=== PATIENT | female | born 1965 | race Caucasian/White ===

== ENCOUNTER 2017-11-20 10:30 | Inpatient (IN) | payer BC ==
[~2017-11-20] VITALS: Ht 160 cm; Wt 79.8 kg
--- NOTE | ~2017-11-20 | EKG ---
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
--- NOTE | ~2017-11-20 | PATH ---
[facility] [address] [place] [address] PATHOLOGY RPT PROCEDURE Name: MANISH MEYERS Room #: 227-P [facility] IN M.R.#: [id number] Admission: 11/20/17 Date of : 69 Discharge: 11/23/17 Report #: [id number] Path Case #: [id number] [facility] Accession Number: [id number] . 01 Material submitted: . GALLBLADDER . 01 Clinical history: . Symptomatic cholelithiasis . 02 Diagnosis: Gallbladder, cholecystectomy: - Moderate chronic cholecystitis. - Cholelithiasis. . (IUV:mml; 11/24/17) [facility]/11/24/2017 . 02 Electronically signed: . Masha Chris MD, Pathologist NPI- [id number] . 01 Gross description: . The specimen is received in formalin, labeled "Meyers, Manish, gallbladder" and consists of a previously opened pink-valencia and dusky gallbladder measuring 8.0 x 4.3 x 1.0 cm. Adhered to the mucosa is tenacious green bile with multiple yellow-green and multifaceted calculi measuring up to 1.0 cm. The mucosa is pink-red to roger and mildly trabeculated. Sectioning reveals an edematous wall measuring up to 0.6 cm and no masses or lesions are identified. Supply Chain Program Manager sections are submitted in A1-A3. (SDY; 11/22/2017) SYU/SYU . 02 Pathologist provided ICD-10: K80.10 . 02 CPT . 067318 Performed at: [address], [place], [place] [id number] MD Sohail Kelley MD Phone: [phone] Performed at: [address] [id number] MD Masha Chris MD Phone: [phone]
--- NOTE | ~2017-11-20 | EKG ---
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
--- NOTE | ~2017-11-20 | 2DMMODE ---
[facility] [address] [place] [address] 2 D/M-MODE ECHOCARDIOGRAM Name: MANISH MEYERS Room #: 209-P ADM IN M.R.#: [id number] Admission: 11/20/17 Attend Phys: Manjit Peres Discharge: Date of : 69 Date of Service: 11/21/17 1256 Report #: [id number] THIS REPORT FOR: //name// APPROVED REPORT Study performed: 11/21/2017 10:00:07 EXAM: Comprehensive 2D, Doppler, and color-flow Echocardiogram Patient Location: Echo lab Room #: 209 Status: routine BSA: 1.83 HR: 55 bpm BP: 133/69 mmHg Rhythm: NSR Other Information Study Quality: Adequate Indications Elevated troponin. 2D Dimensions RVDd: 33.38 mm LVEF(%): 60.85 (>50%) IVSd: 10.90 (7-11mm) LVOT Diam: 19.68 (18-24mm) LVDd: 47.97 mm PWd: 8.14 (7-11mm) Ascending Ao: 27.65 (22-36mm) LVDs: 32.34 (25-40mm) Aortic Root: 31.18 mm IVC: 20.00 mm Daugherty's LVEF: 60.85 % Volumes Left Atrial Volume (Systole) Single Plane 4CH: 44.74 mL Single Plane 2CH: 59.19 mL LA ESV Index: 32.00 mL/m2 Aortic Valve AoV Peak Timothy.: 1.16 m/s AO Peak Gr.: 5.39 mmHg LVOT Max P.75 mmHg LVOT Max V: 0.97 m/s PRETTY Vmax: 2.54 cm2 Mitral Valve E/A Ratio: 1.9 MV Decel. Time: 128.83 ms [facility] [place] [address] 2 D/M-MODE ECHOCARDIOGRAM Name: MANISH MEYERS Room #: 209-P [facility] IN M.R.#: [id number] Admission: 11/20/17 Attend Phys: Manjit Peres Discharge: Date of : 69 Date of Service: 11/21/17 1256 Report #: [id number] MV E Max Timothy.: 0.90 m/s MV A Timothy.: 0.47 m/s MV PHT: 37.36 ms IVRT: 87.66 ms Pulmonary Valve PV Peak Timothy.: 0.71 m/s PV Peak Gr.: 2.02 mmHg Pulmonary Vein P Vein S: 0.70 m/s P Vein A: 0.26 m/s P Vein D: 0.48 m/s P Vein A Dur.: 147.6 msec P Vein S/D Ratio: 1.46 Tricuspid Valve TR Peak Timothy.: 2.05 m/s RAP Estimate: 5.00 mmHg TR Peak Gr.: 16.81 mmHg PA Pressure: 22.00 mmHg Left Ventricle The left ventricle is normal size. There is normal LV segmental wall motion. There is normal left ventricular wall thickness. The left ventricular systolic function is normal. LVEF is 55%. The left ventricular diastolic function is normal. Right Ventricle The right ventricle is normal size. The right ventricular systolic function is normal. Atria The left atrium size is normal. The right atrium size is normal. Aortic Valve The aortic valve is normal in structure. Mild aortic regurgitation. There is no aortic valvular stenosis. Mitral Valve The mitral valve is normal in structure. Mild mitral regurgitation. No evidence of mitral valve stenosis. Tricuspid Valve The tricuspid valve is normal in structure. Trace to mild tricuspid regurgitation. Estimated PAP is 20-25mmHg. Pulmonic Valve The pulmonary valve is normal in structure. There is no pulmonic [facility] [address] [place] [address] 2 D/M-MODE ECHOCARDIOGRAM Name: MANISH MEYERS Room #: 209-P ADM IN M.R.#: [id number] Admission: 11/20/17 Attend Phys: Manjit Peres Discharge: Date of : 69 Date of Service: 11/21/17 1256 Report #: [id number] valvular regurgitation. Great Vessels The aortic root is normal in size. IVC is normal in size and collapses >50% with inspiration. Pericardium There is no pericardial effusion. <Conclusion> The left ventricle is normal size. LVEF is 55%. The aortic valve is normal in structure. Mild aortic regurgitation. The mitral valve is normal in structure. Mild mitral regurgitation. The tricuspid valve is normal in structure. Trace to mild tricuspid regurgitation. Estimated PAP is 20-25mmHg. The pulmonary valve is normal in structure. There is no pericardial effusion. <ELECTRONICALLY SIGNED> By: Ronnie Del Valle MD 11/21/17 1256 1256 1256 Ronnie Del Valle MD /INF
--- NOTE | ~2017-11-20 | O ---
[facility] [place] [address] OPERATIVE REPORT Name: MANISH MEYERS Room #: 227-P [facility] IN M.R.#: [id number] Admission: 11/20/17 Attend Phys: Manjit Burt Discharge: 11/23/17 Date of : 69 Report #: [id number] THIS REPORT FOR: //name// CC: Manjit Levi DATE OF SERVICE: 11/22/2017 SURGEON: Frantz May MD CARTOON DESIGNER: None. PREOPERATIVE DIAGNOSES: 1. Symptomatic cholelithiasis. 2. Noncardiac chest pain with elevated troponin I levels. POSTOPERATIVE DIAGNOSES: 1. Acute cholecystitis. 2. Noncardiac chest pain with elevated troponin I levels. PROCEDURE: Laparoscopic cholecystectomy with intraoperative cholangiogram. ANESTHESIA: General endotracheal anesthesia and local anesthetic. ESTIMATED BLOOD LOSS: 5 mL. SPECIMEN: Gallbladder. COMPLICATIONS: None appreciated. INDICATIONS FOR PROCEDURE: This is a 52-year-old female patient who was seen in the [facility] emergency room with upper abdominal pain located subcostally bilaterally. There was no temporal relationship with food. She had no relief of her symptoms with the passage of 3 bowel movements. With worsening of her pain, she was seen in the [facility] emergency room where CT of the abdomen and pelvis showed a thickened gallbladder wall, followed by an abdominal ultrasound showing cholelithiasis and gallbladder wall thickening. The patient denies nausea, vomiting, fever, or chills. Her troponin I was elevated at 0.33 initially, increased to 0.77, which prompted a nuclear stress test. This was negative. Cholecystectomy is indicated for noncardiac chest pain. OPERATIVE FINDINGS: Upon entrance into the abdominal cavity, the gallbladder was seen to be edematous with a moderate amount of fluid present within the pericholecystic tissue. The critical view consisting of cystic artery, cystic duct and lower edge of the gallbladder forming a window through which the liver was visible was seen prior to clipping the cystic duct for cholangiogram. [facility] [address] [place] [address] OPERATIVE REPORT Name: MANISH MEYERS Room #: 227-[facility] IN M.R.#: [id number] Admission: 11/20/17 Attend Phys: Manjit Burt Discharge: 11/23/17 Date of : 69 Report #: [id number] cholangiogram was normal with free flow of contrast into the duodenal sweep and no filling defects within the biliary tree. After removal of the gallbladder, 3 clips remained on the cystic duct stump. No other significant intra-abdominal pathology was seen. Upon opening the gallbladder on the back table, the gallbladder wall was acutely inflamed and thickened with multiple pea-sized mixed/nonpigmented gallstones within the gallbladder. At the conclusion of the operation, the sponge, needle, and instrument counts were correct. DESCRIPTION OF PROCEDURE IN DETAIL: After the benefits and risks of the procedure were explained to the patient which include but are not limited to risks of bleeding, infection, injury to the biliary tree, injury to adjacent organs, risk of DVT, pulmonary embolus, postoperative pain and postoperative expectations informed consent was obtained. The patient was identified in the preoperative holding area. The patient was then given IV antibiotics as documented in the chart to comply with the SCIP protocol. The patient was taken to the operating room and was placed in the supine position. The patient was given IV sedation and was intubated without incident. A time-out was performed to correctly identify the patient and procedure. SCDs were placed on the patient's bilateral lower extremities. The patient's abdomen was then prepped and draped in the standard sterile fashion with ChloraPrep. Local anesthetic was infiltrated into the skin and subcutaneous tissue. A periumbilical incision was made with a #15 blade scalpel. The 11-mm Visiport was then placed intraperitoneally with the 10-mm 0-degree angled laparoscope. After confirmation of placement within the peritoneal cavity, the scope was changed to a 10-mm 30 degree angled laparoscope and pneumoperitoneum was achieved with insufflation of carbon dioxide. The patient was placed in the reverse Trendelenburg position, rotated to the patient's left. A subxiphoid 5 mm and right subcostal 5 mm ports times 2 were placed under direct visualization after local anesthetic was infiltrated into the skin and subcutaneous tissue and appropriately sized incisions were made. Operative findings are as noted above. The dome of the gallbladder was retracted in a cephalad direction. The gallbladder peritoneum was scored medially and laterally after takedown of the adhesions to the gallbladder. Dissection was carried out around the cystic artery and cystic duct to identify each structure as entering directly into the gallbladder. The critical view as described above was seen. A Hemoclip was then placed on the cystic duct at its junction with the gallbladder. A ductotomy was made and the cholangiocatheter was passed into the cystic duct. A clip was placed, contrast was then injected and cholangiogram findings are as noted above. The cholangiocatheter was then removed and the cystic duct was triply clipped distal to the ductotomy. The duct was divided at the ductotomy site with the energy device. The cystic artery was then divided with the energy device as well. The gallbladder was then dissected off the liver bed and after fully removing the gallbladder, it was placed in an Endopouch and then removed through the periumbilical port site. [address] [address] OPERATIVE REPORT Name: MANISH MEYERS Room #: 227-P [facility] IN M.R.#: [id number] Admission: 11/20/17 Attend Phys: Manjit Burt Discharge: 11/23/17 Date of : 69 Report #: [id number] The abdominal cavity was then reentered. Other operative findings are as noted above. The liver bed was made hemostatic with a combination of electrocautery and other hemostatic agent as documented in the chart. After ensuring final hemostasis and ensuring that the clips were secure, the periumbilical port site fascial opening was closed with a simple interrupted 0 PDS suture under direct visualization using the Satnam Ambrocio laparoscopic fascial closure device. The ports were removed and the abdominal cavity was desufflated. The fascial suture was tied. Interrupted subcuticular 4-0 Monocryl sutures and Dermabond were used to close the skin. The patient tolerated the procedure well. The patient was awakened, extubated and taken to the recovery room in stable condition with no apparent intraoperative complications. <ELECTRONICALLY SIGNED> By: Frantz May MD, FACS 11/24/17 0958 1008 1035 Frantz May MD, FACS /nt
[2017-11-20 10:31] VITALS: BP 172/79
[2017-11-20] MEDS ORDERED: ALLEGRA ALLERGY60 MG PO (10:45)
[2017-11-20] MEDS ORDERED: EXCEDRIN MIGRA1 EAC1 PO (10:45)
[2017-11-20 10:54] LABS: ABSOLUTE NEUTROPHILS 8.8 thou/uL (1.4-8.2); BASOPHILS 0.3 % (0.0-2.0); EOSINOPHILS 0.4 % (0.0-3.0); HEMATOCRIT 40.2 % (37.0-47.0); HEMOGLOBIN 13.3 gm/dL (12.0-15.0); LYMPHOCYTES 11.2 % (24.0-44.0); MCH 29.7 pg (26.0-34.0); MCHC 33.1 g/dL (28.0-37.0); MCV 89.8 fL (80.0-100.0); MONOCYTES 4.5 % (1.0-8.0); PLATELET COUNT 236 thou/uL (150-400); POLYS 83.6 % (36.0-66.0); RBC 4.48 mil/uL (4.20-5.00); WBC 10.6 thou/uL (4.0-11.0)
[2017-11-20 11:02] LABS: CREATININE 0.9 mg/dL (0.6-1.0); POTASSIUM 3.9 mmol/L (3.5-5.1)
[2017-11-20 11:12] LABS: TOTAL BILIRUBIN 0.3 mg/dL (<0.1-1.0); TOTAL PROTEIN 7.7 g/dL (6.4-8.2); TROPONIN-I 0.33 ng/mL (<0.06)
[2017-11-20 12:23] LABS: URINE BILIRUBIN NEGATIVE (Negative); URINE BLOOD NEGATIVE (Negative); URINE CLARITY CLEAR; URINE COLOR YELLOW; URINE GLUCOSE-RANDOM* NEGATIVE (Negative); URINE KETONES NEGATIVE (Negative); URINE LEUKOCYTES-REFLEX NEGATIVE (Negative); URINE NITRITE-REFLEX NEGATIVE (Negative); URINE PROTEIN (DIPSTICK) NEGATIVE (Negative); URINE SPECIFIC GRAVITY <= 1.005 (1.005-1.035); URINE UROBILINOGEN 0.2 E.U./dl (0.2-1.0)
[2017-11-20 12:56] VITALS: BP 143/69
[2017-11-20 13:52] VITALS: BP 143/69
[2017-11-20 14:41] VITALS: BP 128/60
[2017-11-20 18:00] LABS: CHOLESTEROL 215 mg/dL (<200); HDL CHOLESTEROL 80 mg/dL (>40); LDL CHOLESTEROL 123 mg/dL (<100); TC:HDL 2.7 Ratio (Not establshd); TRIGLYCERIDE 60 mg/dL (<150); VLDL 12 mg/dL (<40)
[2017-11-20 20:55] VITALS: BP 146/71
[2017-11-21 00:34] VITALS: BP 118/57
[2017-11-21 03:26] LABS: CALCIUM 8.4 mg/dL (8.5-10.1); CREATININE 0.8 mg/dL (0.6-1.0); POTASSIUM 3.7 mmol/L (3.5-5.1)
[2017-11-21 03:33] LABS: ALBUMIN 2.9 g/dL (3.4-5.0); CALCIUM 8.3 mg/dL (8.5-10.1); CREATININE 0.8 mg/dL (0.6-1.0); POTASSIUM 3.7 mmol/L (3.5-5.1); TOTAL BILIRUBIN 0.5 mg/dL (<0.1-1.0); TOTAL PROTEIN 5.9 g/dL (6.4-8.2)
[2017-11-21 03:35] LABS: ALBUMIN 2.9 g/dL (3.4-5.0); PHOSPHORUS 3.3 mg/dL (2.5-4.9); TROPONIN-I 0.33 ng/mL (<0.06)
[2017-11-21 04:03] LABS: ABSOLUTE NEUTROPHILS 2.8 thou/uL (1.4-8.2); BASOPHILS 0.5 % (0.0-2.0); EOSINOPHILS 1.7 % (0.0-3.0); HEMATOCRIT 35.4 % (37.0-47.0); HEMOGLOBIN 11.7 gm/dL (12.0-15.0); LYMPHOCYTES 41.1 % (24.0-44.0); MCH 29.8 pg (26.0-34.0); MCHC 33.1 g/dL (28.0-37.0); MCV 90.2 fL (80.0-100.0); MONOCYTES 10.2 % (1.0-8.0); PLATELET COUNT 167 thou/uL (150-400); POLYS 46.5 % (36.0-66.0); RBC 3.93 mil/uL (4.20-5.00); RDW 13.6 % (10.5-14.5); WBC 6.1 thou/uL (4.0-11.0)
[2017-11-21 05:46] LABS: LARGE PLATELETS OCCASIONAL; POLYCHROMASIA OCCASIONAL
[2017-11-21 06:14] VITALS: BP 133/69
[2017-11-21 07:40] VITALS: BP 155/72
[2017-11-21 12:15] VITALS: BP 152/79
[2017-11-21 16:10] VITALS: BP 130/72
[2017-11-21 17:02] VITALS: BP 149/78
[2017-11-22 00:42] VITALS: BP 139/69
[2017-11-22 07:54] VITALS: BP 142/90
[2017-11-22] MEDS ORDERED: NORCO 5-325 TA1 EACH PO (09:40)
[2017-11-22] MEDS ORDERED: SENNA-S LAXATI1 EACH PO (10:02)
[2017-11-22 16:48] VITALS: BP 147/85
[2017-11-22 20:49] VITALS: BP 131/76
[2017-11-23 07:40] VITALS: BP 137/69
[2017-11-23 13:04] VITALS: BP 137/69
== END 2017-11-23 13:39 | disposition home or self-care (01) | DRG 417 ==
LOC: ER 10:30 → EROBS 12:31 → 2N 12:31 → SICU 11-21 17:09 → ENTRNSPT 11-23 13:12 → EDTRNSPTSTS 11-23 13:15 → SICU 11-23 13:39
PROVIDERS: Hospitalist; Nurse Practitioner Adult Health; Physician Assistant; Surgery
PROC: BF121ZZ Fluoroscopy of Gallbladder using Low Osmolar Contrast (ICD-10-PCS; principal; 2017-11-22)
PROC: 0FT44ZZ Resection of Gallbladder, Percutaneous Endoscopic Approach (ICD-10-PCS; principal; 2017-11-22)
DX: K80.00 Calculus of gallbladder with acute cholecystitis without obstruction (principal); E43 Unspecified severe protein-calorie malnutrition; G43.909 Migraine, unspecified, not intractable, without status migrainosus; I10 Essential (primary) hypertension; Z88.2 Allergy status to sulfonamides; Z79.82 Long term (current) use of aspirin; Z79.899 Other long term (current) drug therapy; Z85.3 Personal history of malignant neoplasm of breast; Z82.49 Family history of ischemic heart disease and other diseases of the circulatory system; Z68.31 Body mass index [BMI] 31.0-31.9, adult
CPT/HCPCS: 10081; 15002; 50010; 50101; 50249; 50411; 50445; 50555; 50558; 50962; 51489; 51975; 52265; 52266; 53307; 54022; 54118; 55245; 55317; 56462; 56525; 56526; 62110; 62900; 70005